=== PATIENT | female | born 1985 | race Caucasian/White ===

== ENCOUNTER 2017-06-06 16:31 | Outpatient (CLI) | payer OTHER ==
[~2017-06-06] VITALS: Ht 162.6 cm; Wt 103.8 kg
--- NOTE | 2017-06-06 17:38 | RADRPT ---
PROCEDURE: US OB biophysical profile. CLINICAL INDICATION: evaluation TECHNIQUE: Multiple sonographic images of the pelvis were obtained. The images were reviewed on a PACS workstation. COMPARISON: No prior studies are available for comparison. FINDINGS: There is a single viable intrauterine gestation. Cardiac activity is present with 166 beats per min sol. There is a vertex presentation. The placenta is posterior. There is no evidence of placental abruption. There is a normal amount of amniotic fluid with an ANITHA = 12.6 cm. Biophysical profile: movement 2/2 tone 2/2. breathing 2/2 ANITHA 2/2 Total 06/28 RPTAT: AA . IMPRESSION: Normal biophysical profile. Mildly elevated heart rate of 166 beats per minute. Normal ANITHA. Physician Julio Date Time Electronically viewed and signed by Physician Julio on 06/06/2017 17:37 /
[2017-06-06 17:39] VITALS: Ht 162.6 cm; Wt 103.8 kg
[2017-06-06] MEDS ORDERED: PRENAT PO (17:39)
[2017-06-06] MEDS ORDERED: FER325 PO (17:39)
[2017-06-06 17:40] VITALS: BP 99/63; PULSE 80; RESP 18
[2017-06-06 17:58] LABS: ADD SCAN DIFF NO
[2017-06-06 18:01] LABS: BASOPHILS % 0.1 % (0.0-2.0); EOSINOPHILS # 0.2 10^3/ul (0.0-0.5); HEMATOCRIT 33.4 % (37.0-47.0); HEMOGLOBIN 10.9 g/dl (12.0-16.0); LYMPHOCYTES # 1.7 10^3/ul (0.8-2.9); LYMPHOCYTES % 18.5 % (15.0-51.0); MEAN CORPUSCULAR HEMOGLOBIN 30.8 pg (29.0-33.0); MEAN CORPUSCULAR HGB CONC 32.6 g/dl (32.0-37.0); MEAN CORPUSCULAR VOLUME 94.4 fl (82.0-101.0); MEAN PLATELET VOLUME 11.5 fl (7.4-10.4); MONOCYTE # 0.8 10^3/ul (0.3-0.9); MONOCYTES % 9.1 % (0.0-11.0); NEUTROPHIL # 6.2 10^3/ul (1.6-7.5); NEUTROPHILS % 68.8 % (39.0-77.0); PLATELET COUNT 170 10^3/UL (140-415); RED BLOOD COUNT 3.54 10^6/ul (4.20-5.40); RED CELL DISTRIBUTION WIDTH 14.1 % (11.5-14.5); WHITE BLOOD COUNT 8.9 10^3/ul (4.8-10.8)
[2017-06-06 18:06] LABS: ADD UMIC YES; UR ASCORBIC ACID 20 mg/dL (NEGATIVE); UR BILIRUBIN (Dip) NEGATIVE (NEGATIVE); UR BLOOD (Dip) NEGATIVE (NEGATIVE); UR CLARITY SLIGHTLY CLOUDY (CLEAR); UR COLOR YELLOW (YELLOW); UR GLUCOSE (Dip) NEGATIVE (NEGATIVE); UR KETONES (Dip) NEGATIVE (NEGATIVE); UR LEUKOCYTE ESTERASE (Dip) 3+ Leu/ul (NEGATIVE); UR MUCUS FEW /HPF (NONE SEEN); UR NITRITE (Dip) NEGATIVE (NEGATIVE); UR RBC 3 /HPF (0-5); UR SPECIFIC GRAVITY (Dip) 1.027 (1.003-1.030); UR SQUAMOUS EPITHELIAL CELL FEW /HPF (FEW); UR TOTAL PROTEIN (Dip) NEGATIVE (NEGATIVE); UR UROBILINOGEN (Dip) NEGATIVE (NEGATIVE)
[2017-06-06 18:21] LABS: INR 1.03; PROTIME 13.5 Sec (12.2-14.2); PT RATIO 1.1
[2017-06-06 18:22] LABS: PARTIAL THROMBOPLASTIN TIME 30.2 Sec (25.0-35.0)
[2017-06-06 18:23] LABS: ALBUMIN 3.4 g/dl (3.3-4.9); ALBUMIN/GLOBULIN RATIO 1.09; BILIRUBIN,INDIRECT 0.1 mg/dl (0-1.1); BILIRUBIN,TOTAL 0.1 mg/dl (0.2-1.3); CALCIUM 9.1 mg/dl (8.4-10.2); CREATININE 0.51 mg/dl (0.44-1.00); POTASSIUM 3.8 mmol/L (3.5-5.1); TOTAL PROTEIN 6.5 g/dl (6.1-8.1); URIC ACID 3.6 mg/dl (3.1-7.9)
--- NOTE | 2017-06-06 18:51 | TRIAGE ---
OB Triage Datetime Report Generated by CPN: 06/06/2017 18:50 Datetime: 06/06/2017 18:30 Stage of : OB Triage Maternal Assessment Level of Consciousness: Fully Conscious Labor Evaluation Frequency: IRREGULAR Monitor Mode: External Duration (sec)2399: 60-100 Quality: Mild Resting Tone [place]: Relaxed Heart Rate FHR Baseline Rate: 135 Monitor Mode: External US Variability: Moderate 6-25 bpm Accelerations: 15X15 Decelerations: None Pain Assessment Pain Scale: 0 Pain Goal: 3 Vaginal Exam Membrane Status: Intact Vaginal Bleeding: None Datetime: 06/06/2017 17:37 Assessment Type: Triage Maternal Assessment Level of Consciousness: Fully Conscious DTR's/Clonus: DTRs 2+; No Clonus Headache: Denies Blurred Vision: No Respiratory Effort: Unlabored; Regular Rhythm; Equal Expansion Breath Sounds, Left: Clear and Equal Breath Sounds, Right: Clear and Equal Nausea/Vomiting: Denies RUQ Epigastric Pain: Denies Lower Extremities Edema: Bilateral Lower Extremities Degree: 1+ Upper Extremities Edema: None Degree: None Facial Edema: None Fall Risk Assessment History of Falling: (0) No Secondary Diagnosis: (0) No Ambulatory Aid: (0) Bedrest/Nurse Assist IV Therapy: (0) No Gait: (0) Normal/Bedrest/Immobile Mental Status: (0) Oriented to Own Ability Fall Score: 0 Fall Risk Score Definition: No Risk: No action required Datetime: 06/06/2017 17:32 Time of Arrival: 06/06/2017 16:35 EGA: 29.3 Arrived By: Ambulatory Arrived From: Office Chief Complaint: pt sent from OFFICE FOR EVAL. OF HBP Movement: Present Contractions: Denies/Absent Rupture of Membranes: Denies Vaginal Bleeding: None Vaginal Discharge: Denies Recent Sexual Intercouse: Denies Abdominal Trauma: Not Applicable Patient Complaints: None Time Provider Notified: 06/06/2017 18:38 Provider Notified: ITZ Initial Plan: PIH PANEL,NST, U/S BPP Datetime: 06/06/2017 17:31 Monitor Mode: External Monitor Mode: External US
--- NOTE | 2017-06-06 18:52 | QN ---
Documentation Comment iup 29 weeks vss exam wnl labs wnl a/p iup 29 weeks PIH ruled out dc home ATUL MORRELL MD Jun 06, 2017 18:51
== END 2017-06-06 18:52 | disposition home or self-care (01) ==
LOC: OBT 16:31 → L-D 16:31 → OBT 18:52
PROVIDERS: ATTEND Obstetrics & Gynecology
DX: O16.3 Unspecified maternal hypertension, third trimester (principal); Z3A.30 30 weeks gestation of pregnancy
CPT/HCPCS: 76818; 80053; 81001; 84560; 85025; 85384; 85610; 85730; Z7500; G0463

== ENCOUNTER 2017-08-12 05:35 | Inpatient (IN) | payer OTHER ==
[~2017-08-12] VITALS: Ht 154.9 cm; Wt 111.0 kg
[2017-08-12] VITALS (8 sets, daily range): BP systolic 81–120; BP diastolic 53–73; PULSE 79–129; RESP 16–20; Ht 154.9 cm; Wt 111.0 kg
[~2017-08-12 05:35] MED LIST: FER325 PO; PRENAT PO
[2017-08-12] MEDS ORDERED: CARBOPROST 250 MCG INJ IM PRN ×2 (06:00→13:00)
[2017-08-12] MEDS ORDERED: METHYLERGONOVINE 0.2 MG INJ IM PRN ×2 (06:00→13:00)
[2017-08-12] MEDS ORDERED: MISOPROSTOL 200 MCG TAB PR PRN ×2 (06:00→13:00)
[2017-08-12] MEDS ORDERED: OXYTOCIN 30 UNITS/LR 500 ML IV PRN ×2 (06:00→13:00)
[2017-08-12 06:25] LABS: BASOPHILS % 0.2 % (0.0-2.0); EOSINOPHILS # 0.1 10^3/ul (0.0-0.5); EOSINOPHILS % 1.5 % (0.0-7.0); HEMATOCRIT 36.7 % (37.0-47.0); HEMOGLOBIN 12.5 g/dl (12.0-16.0); LYMPHOCYTES # 1.7 10^3/ul (0.8-2.9); LYMPHOCYTES % 20.2 % (15.0-51.0); MEAN CORPUSCULAR HEMOGLOBIN 32.3 pg (29.0-33.0); MEAN CORPUSCULAR HGB CONC 34.1 g/dl (32.0-37.0); MEAN CORPUSCULAR VOLUME 94.8 fl (82.0-101.0); MEAN PLATELET VOLUME 12.6 fl (7.4-10.4); MONOCYTE # 0.7 10^3/ul (0.3-0.9); MONOCYTES % 8.5 % (0.0-11.0); NEUTROPHIL # 5.9 10^3/ul (1.6-7.5); NEUTROPHILS % 68.6 % (39.0-77.0); PLATELET COUNT 166 10^3/UL (140-415); RED BLOOD COUNT 3.87 10^6/ul (4.20-5.40); RED CELL DISTRIBUTION WIDTH 13.8 % (11.5-14.5); WHITE BLOOD COUNT 8.6 10^3/ul (4.8-10.8)
[2017-08-12 06:48] LABS: INR 0.95; PROTIME 12.7 Sec (12.2-14.2)
[2017-08-12 06:49] LABS: PARTIAL THROMBOPLASTIN TIME 32.2 Sec (25.0-35.0)
[2017-08-12] MEDS ORDERED: CEFAZOLIN 2 GM/50 ML (PMX) 50 ML IV SCH (07:00)
[2017-08-12] MEDS: LACTATED RINGER'S 1,000 ML IV SCH ×2 (07:40→07:44)
[2017-08-12] MEDS ORDERED: morphine SULFATE/PF (10 MG/10 ML) INJ ONE (07:59)
[2017-08-12] MEDS ORDERED: OXYTOCIN 30 UNITS/LR 500 ML IV ONE (07:59)
[2017-08-12] MEDS ORDERED: EPHEDrine SULFATE 50 MG/5 ML SYG ONE (07:59)
[2017-08-12] MEDS ORDERED: METOCLOPRAMIDE 10 MG INJ ONE (07:59)
[2017-08-12] MEDS ORDERED: ONDANSETRON 4 MG INJ ONE (07:59)
[2017-08-12] MEDS ORDERED: OXYTOCIN 10 UNIT INJ ONE (08:00)
[2017-08-12 08:17] LABS: ALANINE AMINOTRANSFERASE 37 IU/L (13-69); ALBUMIN 3.3 g/dl (3.3-4.9); ALBUMIN/GLOBULIN RATIO 1.32; ALKALINE PHOSPHATASE 130 IU/L (42-121); ANION GAP 11 (8-16); ASPARTATE AMINO TRANSFERASE 28 IU/L (15-46); BILIRUBIN,INDIRECT 0.3 mg/dl (0-1.1); BILIRUBIN,TOTAL 0.3 mg/dl (0.2-1.3); BLOOD UREA NITROGEN 10 mg/dl (7-20); CALCIUM 9.4 mg/dl (8.4-10.2); CARBON DIOXIDE 22 mmol/L (21-31); CHLORIDE 107 mmol/L (97-110); CREATININE 0.44 mg/dl (0.44-1.00); GLUCOSE 73 mg/dl (70-220); SODIUM 136 mmol/L (135-144); TOTAL PROTEIN 5.8 g/dl (6.1-8.1)
--- NOTE | 2017-08-12 10:29 | SIPON ---
Date/Time of Note Date/Time of Note DATE: 08/12/17 TIME: 10:25 Operative Report Preoperative Diagnosis IUP 39w with previous c/s Postoperative Diagnosis same delivered normal infant Operation/Procedure Performed repeat low transverse section and bilateral fimbriectomy bilatera; ovarian cystectomy Surgeon see signature line digital sales assistant reiche Anesthesia: spinal Estimated blood loss: other (600 cc) Transfusion Required none Specimen ovarian cyst bilateral \x2 nodules from rt ovaries both portion of follopian tube Grafts/Implants none Complications none ISMAEL MOBLEY MD Aug 12, 2017 10:29
[2017-08-12] MEDS ORDERED: OXYTOCIN 30 UNITS/LR 500 ML IV SCH (10:30)
[2017-08-12] MEDS ORDERED: ONDANSETRON 4 MG INJ IV PRN ×2 (11:00→13:00)
[2017-08-12] MEDS ORDERED: NALOXONE (0.4 MG/ML) INJ IV PRN (11:00)
[2017-08-12] MEDS ORDERED: EPHEDrine SULFATE 50 MG/5 ML SYG IV PRN (11:00)
[2017-08-12] MEDS ORDERED: morphine SULFATE/PF (10 MG/10 ML) INJ SPINAL ONE (11:00)
[2017-08-12] MEDS ORDERED: morphine 2 MG INJ IV PRN (11:00)
[2017-08-12] MEDS ORDERED: morphine 4 MG/ML VIAL IV PRN (11:00)
[2017-08-12] MEDS ORDERED: DIPHENHYDRAMINE 50 MG INJ IV PRN ×2 (11:00→13:00)
[2017-08-12] MEDS: KETOROLAC 30 MG INJ IV PRN ×2 (12:17→18:18)
[2017-08-12] MEDS ORDERED: LANOLIN 7 GM TUBE TOP PRN (13:00)
[2017-08-12] MEDS ORDERED: ZOLPIDEM 5 MG TAB PO PRN (13:00)
[2017-08-12] MEDS: OXYTOCIN 30 UNITS/LR 500 ML IV SCH ×3 (14:30→23:33)
[2017-08-12] MEDS: SENNA/DOCUSATE NA (8.6MG/50MG) TAB PO SCH (21:00)
[2017-08-12] MEDS ORDERED: SOD CHLORIDE 0.9% 500 ML IV ONE (21:30)
[2017-08-12] MEDS ORDERED: SODIUM CHLORIDE 0.45% 500 ML BAG IV* ONE ×2 (21:30→22:00)
[2017-08-13] VITALS (42 sets, daily range): BP systolic 90–143; BP diastolic 53–78; PULSE 99–125; RESP 14–27
[2017-08-13] MEDS ORDERED: SODIUM CHLORIDE 0.45% 500 ML BAG IV* SCH (00:30)
[2017-08-13] MEDS ORDERED: SOD CHLORIDE 0.45% 1,000 ML IV SCH (01:00)
[2017-08-13] MEDS: OXYTOCIN 30 UNITS/LR 500 ML IV SCH ×4 (02:00→14:00)
[2017-08-13] MEDS: SOD CHLORIDE 0.45% 1,000 ML IV SCH ×3 (02:16→15:50)
[2017-08-13] MEDS: KETOROLAC 30 MG INJ IV PRN ×2 (06:20)
[2017-08-13 06:33] LABS: BASOPHILS % 0.1 % (0.0-2.0); EOSINOPHILS % 0.1 % (0.0-7.0); HEMATOCRIT 22.1 % (37.0-47.0); LYMPHOCYTES # 1.7 10^3/ul (0.8-2.9); LYMPHOCYTES % 12.2 % (15.0-51.0); MEAN CORPUSCULAR HEMOGLOBIN 31.7 pg (29.0-33.0); MEAN CORPUSCULAR HGB CONC 32.6 g/dl (32.0-37.0); MEAN CORPUSCULAR VOLUME 97.4 fl (82.0-101.0); MEAN PLATELET VOLUME 12.4 fl (7.4-10.4); MONOCYTE # 1.3 10^3/ul (0.3-0.9); MONOCYTES % 8.8 % (0.0-11.0); NEUTROPHILS % 77.1 % (39.0-77.0); PLATELET COUNT 139 10^3/UL (140-415); RED BLOOD COUNT 2.27 10^6/ul (4.20-5.40); RED CELL DISTRIBUTION WIDTH 14.7 % (11.5-14.5); WHITE BLOOD COUNT 14.3 10^3/ul (4.8-10.8)
[2017-08-13 07:07] LABS: HEMOGLOBIN 7.2 g/dl (12.0-16.0)
[2017-08-13] MEDS: SENNA/DOCUSATE NA (8.6MG/50MG) TAB PO SCH (08:55)
[2017-08-13] MEDS ORDERED: FERROUS SULFATE (EC) 325 MG TAB PO SCH (09:00)
[2017-08-13] MEDS ORDERED: PRENATAL VITAMIN PO SCH (09:00)
[2017-08-13] MEDS ORDERED: FERROUS GLUCONATE (EC) 325 MG TAB PO SCH (10:00)
[2017-08-13] MEDS ORDERED: IBUPROFEN 600 MG TAB PO SCH (12:00)
[2017-08-13] MEDS ORDERED: IOHEXOL 100 ML ONE (12:22)
[2017-08-13] MEDS ORDERED: SOD CHLORIDE 0.9% 100 ML ONE (12:22)
[2017-08-13 12:46] LABS: ABNORMAL IP MESSAGE 1; EOSINOPHILS % 0.1 % (0.0-7.0); HEMATOCRIT 20.2 % (37.0-47.0); LYMPHOCYTES # 1.4 10^3/ul (0.8-2.9); LYMPHOCYTES % 10.3 % (15.0-51.0); MEAN CORPUSCULAR HEMOGLOBIN 31.6 pg (29.0-33.0); MEAN CORPUSCULAR HGB CONC 32.2 g/dl (32.0-37.0); MEAN CORPUSCULAR VOLUME 98.1 fl (82.0-101.0); MEAN PLATELET VOLUME 12.5 fl (7.4-10.4); MONOCYTE # 1.2 10^3/ul (0.3-0.9); MONOCYTES % 8.7 % (0.0-11.0); NEUTROPHIL # 10.7 10^3/ul (1.6-7.5); NEUTROPHILS % 79.3 % (39.0-77.0); PLATELET COUNT 122 10^3/UL (140-415); RED BLOOD COUNT 2.06 10^6/ul (4.20-5.40); RED CELL DISTRIBUTION WIDTH 14.8 % (11.5-14.5); WHITE BLOOD COUNT 13.5 10^3/ul (4.8-10.8)
[2017-08-13 12:49] LABS: HEMOGLOBIN 6.5 g/dl (12.0-16.0); POSITIVE DIFF @See below
[2017-08-13] MEDS ORDERED: OXYCODONE/ACETAMINOPHEN (5/325) TAB PO PRN ×2 (13:00)
[2017-08-13] MEDS ORDERED: ENOXAPARIN 60 MG/0.6 ML SYG SC STA (13:01)
--- NOTE | 2017-08-13 13:09 | CONS ---
Date/Time of Note Date/Time of Note DATE: 08/13/17 TIME: 13:07 Consultation Date/Type/Reason Admit Date/Time Aug 12, 2017 at 05:35 Hx of Present Illness HOUSEMAN called for acute SOB and tachycardia Patient POD 1 for Doing well until earlier this AM when developed acute SOB, felt like she couldn' t breath and neck swelling shut 98% on RA, RR 30, BP 120s/70s, HR 120s in sinus rhythm EKG with sinus tach, LA abdnormality CT-A is positive for segemental and subsegmental PE per radiologist report I discussed the result with Dr Bolivar attending Bottle Blower Ok to start a heparin bolus/drip STAT Transfer patient to telemetry vs ICU STAT Social History Smoking Status: Never smoker Exam/Review of Systems Vital Signs Vitals Vital Signs Date Time Temp Pulse Resp B/P Pulse Ox O2 Delivery O2 Flow Rate FiO2 08/13/17 08:00 98.5 103 17 99/53 Room Air Intake and Output 08/12/17 08/12/17 08/13/17 15:00 23:00 07:00 Intake Total 1435 ml 875 ml 1835 ml Output Total 1150 ml 1410 ml 170 ml Balance 285 ml -535 ml 1665 ml Results Result Diagram: 08/13/17 1204 08/12/17 0600 Results 24 hrs Laboratory Tests Test 08/13/17 05:41 08/13/17 12:04 White Blood Count 14.3 #H 13.5 H Red Blood Count 2.27 #L 2.06 L Hemoglobin 7.2 #L 6.5 *L Hematocrit 22.1 #L 20.2 L Mean Corpuscular Volume 97.4 98.1 Mean Corpuscular Hemoglobin 31.7 31.6 Mean Corpuscular Hemoglobin Concent 32.6 32.2 Red Cell Distribution Width 14.7 H 14.8 H Platelet Count 139 L 122 L Mean Platelet Volume 12.4 H 12.5 H Neutrophils % 77.1 H 79.3 H Lymphocytes % 12.2 L 10.3 L Monocytes % 8.8 8.7 Eosinophils % 0.1 0.1 Basophils % 0.1 0.0 Nucleated Red Blood Cells % 0.0 0.0 Neutrophils # 11.0 H 10.7 H Lymphocytes # 1.7 1.4 Monocytes # 1.3 H 1.2 H Eosinophils # 0.0 0.0 Basophils # 0.0 0.0 Nucleated Red Blood Cells # 0.0 0.0 Medications Medications Current Medications Influenza Virus Vaccine (Fluzone) 0.5 ml ONCE ONCE IM* ; Start 08/15/17 at 09:00 ; Stop 08/15/17 at 09:01 Prenat Multivit/ Contact Lens Technician/Iron/Folic Ac () 1 tab DAILY PO Last administered on 08/13/17 08:54; Admin Dose 1 TAB; Start 08/13/17 at 09:00 Oxycodone/ Acetaminophen (Percocet (5/ 325)) 1 tab Q4H PRN PO PAIN LEVEL 4-6; Start 08/13/17 at 13:00 Oxycodone/ Acetaminophen (Percocet (5/ 325)) 2 tab Q4H PRN PO PAIN LEVEL 7-10; Start 08/13/17 at 13:00 Ibuprofen (Motrin) 600 mg Q6 PO Last administered on 08/13/17 11:49; Admin Dose 600 MG; Start 08/13/17 at 12:00 Simethicone (Mylicon) 160 mg Q8H PRN PO DISTENSION/GAS/BLOATING Last administered on 08/13/17 10:23; Admin Dose 160 MG; Start 08/12/17 at 13:00 Senna/Docusate Sodium (Senokot-S) 1 tab BID PO Last administered on 08/13/17 08:55; Admin Dose 1 TAB; Start 08/12/17 at 21:00 Diphtheria/ Tetanus/Acell Pertussis 0.5 ml 0.5 ml ONCE ONCE IM* ; Start at 09:00; Stop 08/15/17 at 09:01 Oxytocin/Lactated Ringer's 500 ml @ 0 mls/hr ONCE PRN IV For Hemorrhage Management; Start 08/12/17 at 13:00 Methylergonovine Maleate (Methergine) 0.2 mg ONCE PRN IM VAGINAL BLEEDING; Start 08/12/17 at 13:00 Carboprost Tromethamine (Hemabate) 250 mcg ONCE PRN IM VAGINAL BLEEDING; Start 08/12/17 at 13:00 Misoprostol (Cytotec) 1,000 mcg ONCE PRN [place] VAGINAL BLEEDING; Start 08/12/17 at 13:00 Diphenhydramine HCl (Benadryl) 25 mg Q6H PRN IV PRURITUS; Start 08/12/17 at 13: 00 Ondansetron HCl (Zofran Inj) 4 mg Q6H PRN IV NAUSEA AND/OR VOMITING; Start at 13:00 Zolpidem Tartrate 10 mg 10 mg QHS PRN PO INSOMNIA; Start 08/12/17 at 13:00 Oxytocin/Lactated Ringer's 500 ml @ 125 mls/hr Q4H IV Last administered on 23:33; Admin Dose 125 MLS/HR; Start 08/12/17 at 14:00 Sodium Chloride (1/2 NS) 1,000 ml @ 150 mls/hr Q6H40M IV Last administered on 08/13/17 10:03; Admin Dose 150 MLS/HR; Start 08/13/17 at 02:30 Ferrous Gluconate (Fergon) 325 mg BID PO ; Start 08/13/17 at 21:00 Miscellaneous Information (* Miscellaneous Pharmacy Order) DC previous hepa... ONCE ONCE XX ; Start 08/13/17 at 13:30; Stop 08/13/17 at 13:31; Status UNV Heparin Sodium (Porcine) (Heparin (1000 Units/ml)) 8,900 unit ONCE ONCE IV ; Start 08/13/17 at 13:30; Stop 08/13/17 at 13:31; Status UNV JUDI WINTERS MD Aug 13, 2017 13:09
[2017-08-13] MEDS ORDERED: SOD CHLORIDE 0.9% 250 ML IV* ONE (13:12)
--- NOTE | 2017-08-13 13:16 | RADRPT ---
PROCEDURE: CT angiogram of the chest with contrast. CLINICAL INDICATION: Possible pulmonary embolism TECHNIQUE: CT scan of the chest with contrast was performed on a multidetector high-resolution CT scan. The patient was scanned following the uncomplicated intravenous administration of 125 ml Omni paque-300. The. Coronal and sagittal reformatted images were obtained from the axial source images. Standard CT angiogram of the chest with contrast protocols were performed. 2-D and 3-D reformats wer e performed. The total exam CTDI equals 56.34 mGy and the total exam DLP equals 734.68 mGy-cm. One or more of the following dose reduction techniques were used: - Automated exposure control. - Adjustment of the mA and/or kV according to patient size. Use of iterative reconstruction technique. COMPARISON: CT pulmonary angiogram 05/26/2017 FINDINGS: The pulmonary outflow tract left main pulmonary artery are well enhanced without filling defects. In the distal right main pulmonary artery and extending to involve the right upper, middle and lower l obe liver pulmonary arteries consistent with pulmonary embolism. Additional filling defects involve the primary intersegmental pulmonary arteries of the right upper , middle and lower lobe and seconda ry branches of the right lower lobe pulmonary arteries. The left lobar and primary intersegmental pu lmonary arteries are well enhanced without filling defects. Note that there does not appear to be ri ght heart strain or right heart failure. The heart is within normal in size without pericardial effusion. No evidence of pleural effusions an d pneumothoraces. No evidence of mediastinal hilar or axillary lymphadenopathy. There is mild patchy inhomogeneous ground-glass opacities involving both lower lobes slightly more so on the right and t o a smaller extent the right middle lobe which may all be due to atelectasis. Pneumonitis cannot be excluded. There is no evidence of pulmonary nodules. There is mild to moderate left upper quadrant abdominal ascites. Note that the anterior aspect of th e mid to superior abdominal wall is cut off the image. Status post cholecystectomy without biliary d uctal dilation. Images of the upper abdomen are otherwise unremarkable. The osseous structures are u nremarkable. IMPRESSION: 1. Pulmonary emboli involving the distal right main coronary artery, right upper middle and lower l obe pulmonary arteries and intersegmental branches as described above. No evidence of right heart st rain or right heart failure. 2. Mild patchy inhomogeneous ground-glass opacities involving both lower lobes more so on the right and to a lesser extent right middle lobe which may all be due to atelectasis the pneumonitis should be considered. 3. No evidence of pleural effusions or pneumothorax. 4. Mild to moderate left upper quadrant abdominal ascites. Recommend clinical correlation. Addendum: Dr. Yang was telephoned this results on 08/13/2017 at 1300 hours. RPTAT:AAJJ Physician Domo Date Time Electronically viewed and signed by Savannah Holloway Physician on 08/13/2017 13:15 BM/
[2017-08-13] MEDS ORDERED: HEPARIN 1000 UNITS/ML 10 ML INJ IV PRN ×2 (13:30)
[2017-08-13] MEDS ORDERED: HEPARIN 1000 UNITS/ML 10 ML INJ IV ONE (13:30)
--- NOTE | 2017-08-13 13:50 | CONS ---
Date/Time of Note Date/Time of Note DATE: 08/13/17 TIME: 13:46 Assessment/Plan Assessment/Plan Additional Assessment/Plan CT of the chest was reviewed which is showing pulmonary emboli involving the right main pulmonary artery as well as right middle and upper lobes. No other acute infiltrates identified. Assessment and recommendations; 1. Patient admitted for elective then developed shortness of breath due to pulmonary embolism. Patient however is hemodynamically stable at this point. Also exhibiting adequate oxygenation status. 2. Severe anemia. Continue IV heparin via protocol. Transfuse 2 units packed RBC. Will obtain 2D echocardiogram for evaluation of right ventricular strain. Lower extremity ultrasound to rule out DVT. Consultation Date/Type/Reason Admit Date/Time Aug 12, 2017 at 05:35 Date of Consultation: Aug 13, 2017 Type of Consultation: Pulmonary/critical care Reason for Consultation Consultation requested for evaluation of pulmonary embolism. Next History of presenting illness; patient is a 32-year-old lady who was admitted for elective which was performed uneventfully yesterday. However short while ago became acutely short of breath and a stat CT of the chest was done which is showing right-sided pulmonary embolism involving the right upper lower and middle lobe branches. Patient has been transferred to ICU and started on IV heparin via protocol. Patient feeling better now with decreased shortness of breath. Denies any syncope, chest pain and hemoptysis. Past medical history; 1. This is the patient's third . No history of medical illnesses. Medications; reviewed. Allergies; none. Social history; never smoked no history of alcohol or drug abuse. Occupation history; noncontributory. Family history; patient is . No history of any illnesses in the family. Review systems; denies any headache, seizures. Any chest pain. Shortness of breath is improving. Denies any cough or hemoptysis. Any nausea vomiting. Complains of mild abdominal discomfort because of yesterday's surgery. Denies any edema. Complains of mild orthopnea. Has gained weight during . General exam; young woman , awake alert , currently in no distress Social History Smoking Status: Never smoker Exam/Review of Systems Vital Signs Vitals Vital Signs Date Time Temp Pulse Resp B/P Pulse Ox O2 Delivery O2 Flow Rate FiO2 08/13/17 11:45 98.0 109 18 105/55 98 Room Air Intake and Output 08/12/17 08/12/17 08/13/17 15:00 23:00 07:00 Intake Total 1435 ml 875 ml 1835 ml Output Total 1150 ml 1410 ml 170 ml Balance 285 ml -535 ml 1665 ml Exam HEENT exam;; supple neck, no JVD. No lymphadenopathy. Midline trachea. No thyromegaly. Pharynx is clear. Patient has good dentition. Pupils are midsize and reactive to light. Chest exam; clear to auscultation. S1-S2 audible, no murmurs. Regular rhythm. Tachycardic. Abdomen exam; soft, protuberant. Dressing applied. Midline. Mildly tender. Audible. Extremity exam; no peripheral edema. Pulses 1+ bilaterally. No clubbing. SENIOR POLICY ANALYST exam; no focal deficit. Results Result Diagram: 08/13/17 1204 08/12/17 0600 Results 24 hrs Laboratory Tests Test 08/13/17 05:41 08/13/17 12:04 White Blood Count 14.3 #H 13.5 H Red Blood Count 2.27 #L 2.06 L Hemoglobin 7.2 #L 6.5 *L Hematocrit 22.1 #L 20.2 L Mean Corpuscular Volume 97.4 98.1 Mean Corpuscular Hemoglobin 31.7 31.6 Mean Corpuscular Hemoglobin Concent 32.6 32.2 Red Cell Distribution Width 14.7 H 14.8 H Platelet Count 139 L 122 L Mean Platelet Volume 12.4 H 12.5 H Neutrophils % 77.1 H 79.3 H Lymphocytes % 12.2 L 10.3 L Monocytes % 8.8 8.7 Eosinophils % 0.1 0.1 Basophils % 0.1 0.0 Nucleated Red Blood Cells % 0.0 0.0 Neutrophils # 11.0 H 10.7 H Lymphocytes # 1.7 1.4 Monocytes # 1.3 H 1.2 H Eosinophils # 0.0 0.0 Basophils # 0.0 0.0 Nucleated Red Blood Cells # 0.0 0.0 Medications Medications Current Medications Influenza Virus Vaccine (Fluzone) 0.5 ml ONCE ONCE IM* ; Start 08/15/17 at 09:00 ; Stop 08/15/17 at 09:01 Prenat Multivit/ Gas Plant Repairer/Iron/Folic Ac () 1 tab DAILY PO Last administered on 08/13/17t 08:54; Admin Dose 1 TAB; Start 08/13/17 at 09:00 Oxycodone/ Acetaminophen (Percocet (5/ 325)) 1 tab Q4H PRN PO PAIN LEVEL 4-6; Start 08/13/17 at 13:00 Oxycodone/ Acetaminophen (Percocet (5/ 325)) 2 tab Q4H PRN PO PAIN LEVEL 7-10; Start 08/13/17 at 13:00 Simethicone (Mylicon) 160 mg Q8H PRN PO DISTENSION/GAS/BLOATING Last administered on 08/13/17 10:23; Admin Dose 160 MG; Start 08/12/17 at 13:00 Senna/Docusate Sodium (Senokot-S) 1 tab BID PO Last administered on 08/13/17 08:55; Admin Dose 1 TAB; Start 08/12/17 at 21:00 Diphtheria/ Tetanus/Acell Pertussis 0.5 ml 0.5 ml ONCE ONCE IM* ; Start at 09:00; Stop 08/15/17 at 09:01 Oxytocin/Lactated Ringer's 500 ml @ 0 mls/hr ONCE PRN IV For Hemorrhage Management; Start 08/12/17 at 13:00 Methylergonovine Maleate (Methergine) 0.2 mg ONCE PRN IM VAGINAL BLEEDING; Start 08/12/17 at 13:00 Carboprost Tromethamine (Hemabate) 250 mcg ONCE PRN IM VAGINAL BLEEDING; Start 08/12/17 at 13:00 Misoprostol (Cytotec) 1,000 mcg ONCE PRN [place] VAGINAL BLEEDING; Start 08/12/17 at 13:00 Diphenhydramine HCl (Benadryl) 25 mg Q6H PRN IV PRURITUS; Start 08/12/17 at 13: 00 Ondansetron HCl (Zofran Inj) 4 mg Q6H PRN IV NAUSEA AND/OR VOMITING; Start at 13:00 Zolpidem Tartrate 10 mg 10 mg QHS PRN PO INSOMNIA; Start 08/12/17 at 13:00 Oxytocin/Lactated Ringer's 500 ml @ 125 mls/hr Q4H IV Last administered on 23:33; Admin Dose 125 MLS/HR; Start 08/12/17 at 14:00 Sodium Chloride (1/2 NS) 1,000 ml @ 150 mls/hr Q6H40M IV Last administered on 08/13/17t 10:03; Admin Dose 150 MLS/HR; Start 08/13/17 at 02:30 Ferrous Gluconate (Fergon) 325 mg BID PO ; Start 08/13/17 at 21:00 OLEGARIO MANCERA Aug 13, 2017 13:50
[2017-08-13 14:19] LABS: ABNORMAL IP MESSAGE 1; BASOPHILS % 0.1 % (0.0-2.0); EOSINOPHILS % 0.1 % (0.0-7.0); HEMATOCRIT 20.2 % (37.0-47.0); LYMPHOCYTES % 7.3 % (15.0-51.0); MEAN CORPUSCULAR HEMOGLOBIN 32.9 pg (29.0-33.0); MEAN CORPUSCULAR HGB CONC 34.2 g/dl (32.0-37.0); MEAN CORPUSCULAR VOLUME 96.2 fl (82.0-101.0); MEAN PLATELET VOLUME 11.6 fl (7.4-10.4); MONOCYTE # 1.1 10^3/ul (0.3-0.9); MONOCYTES % 8.1 % (0.0-11.0); NEUTROPHIL # 11.6 10^3/ul (1.6-7.5); NEUTROPHILS % 82.8 % (39.0-77.0); PLATELET COUNT 138 10^3/UL (140-415); RED CELL DISTRIBUTION WIDTH 14.6 % (11.5-14.5)
[2017-08-13 14:30] LABS: HEMOGLOBIN 6.9 g/dl (12.0-16.0); POSITIVE DIFF @See below
[2017-08-13 14:32] LABS: INR 1.09; PROTIME 14.1 Sec (12.2-14.2); PT RATIO 1.1
[2017-08-13 14:33] LABS: PARTIAL THROMBOPLASTIN TIME 32.6 Sec (25.0-35.0)
--- NOTE | 2017-08-13 15:18 | HP ---
Date/Time of Note Date/Time of Note DATE: 08/13/17 TIME: 13:51 OB - History Hx of Present Free Text/Dictation 32 y.o A1(sab) who had x2 section here for repeat c/s and voluntary tubal sterilization at 39weeks. Her course was unevenful prepare for repeat c/s and BTL.after written consent was obtained. Chief Complaint: for elective RC/S and BTL Estimated Due Date: Aug 19, 2017 : 4 Para: 2 Spontaneous : 1 Therapeutic : 0 Care: Limited Care Ultrasounds: Normal mid trimester US Obstetrical Complications: None Medical Complications: None Past Family/Social History * Past Medical, Surgical, Family and Obstetric Histories reviewed from chart. Blood Type: O+ Rubella: immune RPR/VDRL: Negative GBS Status: Unknown HBsAG: Negative OB Admission Exam Vital Signs Vital Signs Vital Signs Date Time Temp Pulse Resp B/P Pulse Ox O2 Delivery O2 Flow Rate FiO2 08/13/17 11:45 98.0 109 18 105/55 98 Room Air Physical Exam HEENT: WNL Heart: Rhythm Normal Lungs: Clear, Equal Abdomen: WNL Extremities: Edema Reflexes: Normal Cervical Dilatation: other Station: Other Membranes: Intact Amniotic Fluid: Unevaluable Heart Rate: 140's Accelerations: Accelerations Present Decelerations: Early Decelerations Varibility: Moderate Contractions on Admission: >10 Minutes Apart Intensity: Mild Last 72 hours Lab Results CBC & BMP 08/12/17 06:00 08/13/17 05:41 08/13/17 12:04 Liver Function Test 08/12/17 06:00 Alanine Aminotransferase (ALT/SGPT) 37 Albumin 3.3 Alkaline Phosphatase 130 H Aspartate Amino Transf (AST/SGOT) 28 Direct Bilirubin 0.00 Total Protein 5.8 L OB Assessment/Plan Reason for admission: section Other Assessment: IUP 39weeks X2 section multiparity Plan: Section Other plan: bilateral tubal sterilization ISMAEL MOBLEY MD Aug 13, 2017 15:13
--- NOTE | 2017-08-13 15:56 | OPR ---
Operative Report Planned Procedure Procedure date Aug 12, 2017 Procedure(s) repeat low transverse section and bilateral salphingectomy and bilateral ovarean cystectomy and excision of x2 nodules from left ovarian capsule and lysis of adhesion Performed by see signature line Assisting provider: LONA AZAR Anesthesiologist: FELIX CRAFT MD Pre-procedure diagnosis IUP 39weeks with X2 previous section voluntary tubal sterilization Anesthesia Type: spinal Procedure Description Under satisfactory spinal [] anesthesia, the patient was prepped and draped and placed in a supine position, tilted to the left. Pfannenstiel incision was madealong the previous incisional scar scar tissue was removed an incision was carried through the subcutaneous tissue. Bleeders brought under control with electrocautery. Fascia incised to the length of the incision. Rectus muscles from the fascia, divided midline. Peritoneum exposed, and difficult to enter due to multiple adhesion from th mid aspect or uterine surface to the upper abdominal wall which was as we entering the abdominal cavity.. lower portion of uterus exposed and noticed there was defect from lysis on the mid anterior of uterus . Transverse incision was made in the lower segment of the uterus. Amniotic sac ruptured. [clear ] amniotic fluid noted.normal macrosomic female infant was born from [place] , [] Nasal oropharyngeal suction was performed. The baby was handed to the team for immediate attention.after delayed cord clamping done. cord blood was taken . The placenta was delivered manually intact. Uterine cavity was cleaned with wet sponge and drainage established. Uterus closed in 2 layers using #1 and 0 ch cat gut[] in continuous fashion, uterine defect from adhesion was released was bleeding and deep and this was closed with continous interlocking sutue using 0ch gut.and left fimbria was clamped cut and doubly ligated with 0 plain gut and rt follopian tube was clamped at fimbriae adn cut and doubly ligated with 0plain cat gut. and left ovary was enlarged approximately 8cm in diameter and contained cystic structure suspicious of dermoid cyst, at this point ,verbal permission for removl of cyst from patient, proceeded in usual fashion. shallow incision was made over the cystic lesion and cortex was from cyst and cyst was enucleated and defect was closed using 00 ch gut with gi needle , again rt ovary also enlarged which might have contained dermoid since nature of cyst has high bilaterality. incision was made over the cystic lesion removed cyst in usual fashion, leaked fatty content with hair, defect was closed with 00ch gut in 2 layer .. Peritoneal cavity irrigated with warm saline. Sponge, needle and instrument count reported to be correct.Incisiona site on uterus recked and tubal and ovarian site were rechecked for bleeder which was intact Abdominal peritoneum closed with [00ch gut ] continuously. Rectus muscle approximated with 00ch gut]. Fascia closed with [#1vicryl subcutaneous layer was irrigated iwth water and approximately with00 )plain gut ], and skin closed with insorb,. Estimated blood loss 600] mL. Urine bag contained 450]mL of urine pressure dressing applied and sent to [facility] in stable condition Post-Procedure Post-procedure diagnosis same as above pelvic adhesion bilateral dermoid cyst of ovaries delivered normal macrosomic female infant Findings: Live Baby [female ], Apgars 9[] and [9 weight [9lb7oz, position oa[], [] presentation vx[]cord.none Estimated blood loss: other (600cc) Specimen(s): yes (see below) Specimen(s) description portion of bilateral follopian tubes cyst from both ovaries Grafts/Implants: no Grafts/Implants description none Pt Condition post procedure: stable Disposition: PACU Physician Certification I, the undersigned physician, hereby certify that I have discussed the procedure described in this consent form with this patient (or the patient's legal parts sales representative), including: * The risk and benefits of the procedure; * Any adverse reactions that may reasonably be expected to occur; * Any alternative efficacious methods of treatment which may be medically viable ; * The potential problems that may occur during recuperation; * Potential for blood transfusion and associated risks/benefits; and * Any research or economic interest I may have regarding this treatment. I further certify that the patient/legally responsible person was encouraged to ask question and that all questions were answered. ISMAEL MOBLEY MD Aug 13, 2017 15:54
--- NOTE | 2017-08-13 16:13 | PN ---
Date/Time of Note Date/Time of Note DATE: 08/13/17 TIME: 16:02 OB Subjective Subjective Subjective patient experienced sudden onset of SOB enough to scream out led to call rapid response team hospitalist ( myriam osborn) ordered CT angiogram to r/o PE which revealed large embolism in bilateral lobe which was informed by dr Osborn prior to this incidence O2 sat was 98-100 in room air HR 109 EKG neg with sinus tachycardia patient immediately transferred to ICU and pulmonalogist consultation requested also due to low H&H x2 unit RBC and X1 FFP ordered on transfer ISMAEL MOBLEY MD Aug 13, 2017 16:13
--- NOTE | 2017-08-13 16:24 | RADRPT ---
PROCEDURE: Ultrasound of the bilateral lower extremity venous system. CLINICAL INDICATION: Bilateral leg pain and swelling, deep venous thrombosis TECHNIQUE: Kim scale with and without compression, color doppler, spectral doppler of the venous system of the bilateral lower extremities was performed. Venous augmentation maneuvers were utilized . COMPARISON: No prior studies are available for comparison. FINDINGS: Right: Common femoral vein: Patent. Femoral vein: Patent. Popliteal vein: Patent. Calf veins: Patent. No soft tissue abnormalities are identified. Left: Common femoral vein: Patent. Femoral vein: Patent. Popliteal vein: Patent. Calf veins: Patent. No soft tissue abnormalities are identified. IMPRESSION: No evidence of a deep vein thrombosis within the bilateral lower extremities. RPTAT: AADD .Vickey Alegre MD, MD Date Time Electronically viewed and signed by .Vickey Alegre MD, on 08/13/2017 16:23 .B/
[2017-08-13] MEDS ORDERED: morphine 10 MG INJ IM PRN (17:00)
[2017-08-13] MEDS: HEPARIN 25000 UNITS/250 ML 250 ML IV SCH (17:34)
[2017-08-13] MEDS: morphine 2 MG INJ IV PRN (20:19)
[2017-08-13] MEDS: FERROUS GLUCONATE (EC) 325 MG TAB PO SCH (20:19)
[2017-08-13 21:54] LABS: BASOPHILS % 0.1 % (0.0-2.0); EOSINOPHILS % 0.2 % (0.0-7.0); HEMATOCRIT 24.2 % (37.0-47.0); HEMOGLOBIN 8.4 g/dl (12.0-16.0); LYMPHOCYTES # 1.4 10^3/ul (0.8-2.9); MEAN CORPUSCULAR HEMOGLOBIN 32.4 pg (29.0-33.0); MEAN CORPUSCULAR HGB CONC 34.7 g/dl (32.0-37.0); MEAN CORPUSCULAR VOLUME 93.4 fl (82.0-101.0); MEAN PLATELET VOLUME 11.7 fl (7.4-10.4); MONOCYTE # 1.2 10^3/ul (0.3-0.9); MONOCYTES % 8.3 % (0.0-11.0); NEUTROPHIL # 11.2 10^3/ul (1.6-7.5); NEUTROPHILS % 80.1 % (39.0-77.0); NUCLEATED RED BLOOD CELLS% 0.1 /100WBC (0.0-0.0); PLATELET COUNT 140 10^3/UL (140-415); RED BLOOD COUNT 2.59 10^6/ul (4.20-5.40); RED CELL DISTRIBUTION WIDTH 14.4 % (11.5-14.5)
[2017-08-13] MEDS ORDERED: AL HYDROX/MG HYDROX/SIMETH 30 ML CUP PO PRN (23:00)
[2017-08-14] VITALS (21 sets, daily range): BP systolic 102–124; BP diastolic 44–76; PULSE 86–115; RESP 16–27
[2017-08-14] MEDS: morphine 2 MG INJ IV PRN (00:27)
[2017-08-14 04:55] LABS: BASOPHILS % 0.1 % (0.0-2.0); EOSINOPHILS % 0.3 % (0.0-7.0); HEMATOCRIT 22.2 % (37.0-47.0); HEMOGLOBIN 7.3 g/dl (12.0-16.0); LYMPHOCYTES # 1.3 10^3/ul (0.8-2.9); LYMPHOCYTES % 10.4 % (15.0-51.0); MEAN CORPUSCULAR HEMOGLOBIN 31.2 pg (29.0-33.0); MEAN CORPUSCULAR HGB CONC 32.9 g/dl (32.0-37.0); MEAN CORPUSCULAR VOLUME 94.9 fl (82.0-101.0); MEAN PLATELET VOLUME 12.3 fl (7.4-10.4); MONOCYTE # 1.2 10^3/ul (0.3-0.9); NEUTROPHIL # 10.2 10^3/ul (1.6-7.5); NEUTROPHILS % 78.7 % (39.0-77.0); PLATELET COUNT 123 10^3/UL (140-415); RED BLOOD COUNT 2.34 10^6/ul (4.20-5.40); RED CELL DISTRIBUTION WIDTH 15.3 % (11.5-14.5); WHITE BLOOD COUNT 12.9 10^3/ul (4.8-10.8)
[2017-08-14 05:13] LABS: ALBUMIN 2.4 g/dl (3.3-4.9); ALBUMIN/GLOBULIN RATIO 0.85; BILIRUBIN,INDIRECT 0.6 mg/dl (0-1.1); BILIRUBIN,TOTAL 0.6 mg/dl (0.2-1.3); CREATININE 0.58 mg/dl (0.44-1.00); POTASSIUM 3.7 mmol/L (3.5-5.1); TOTAL PROTEIN 5.2 g/dl (6.1-8.1)
[2017-08-14] MEDS: PANTOPRAZOLE (EC) 40 MG TAB PO SCH (05:54)
[2017-08-14] MEDS ORDERED: SOD CHLORIDE 0.9% 500 ML IV ONE (06:00)
[2017-08-14] MEDS: HEPARIN 25000 UNITS/250 ML 250 ML IV SCH (06:18)
[2017-08-14] MEDS: FERROUS GLUCONATE (EC) 325 MG TAB PO SCH ×2 (07:49→23:04)
--- NOTE | 2017-08-14 11:15 | CONS ---
Date/Time of Note Date/Time of Note DATE: 08/14/17 TIME: 11:13 Assessment/Plan Assessment/Plan Additional Assessment/Plan Assessment and recommendations; next 1. Patient admitted for elective then developed pulmonary embolism involving the right lung. Clinically markedly improved. 2. Anemia and thrombocytopenia. Status post blood transfusion. Continue current treatment. Monitor platelet count. Patient will need anticoagulation for at least 6 months. She also is a good candidate for either apixaban or Xarelto administration. Consultation Date/Type/Reason Admit Date/Time Aug 12, 2017 at 05:35 Initial Consult Date 08/13/17 Type of Consultation: Pulmonary/critical care 24 HR Interval Summary Free Text/Dictation Patient's condition is significantly improved. She reports marked reduction in shortness of breath. Denies any chest pain, cough, hemoptysis. General exam; young woman, awake and alert. Currently in no distress. Exam/Review of Systems Vital Signs Vitals Vital Signs Date Time Temp Pulse Resp B/P Pulse Ox O2 Delivery O2 Flow Rate FiO2 08/14/17 08:00 98.1 96 20 113/54 97 Room Air 08/13/17 13:15 2.0 Intake and Output 08/13/17 08/13/17 08/14/17 15:00 23:00 07:00 Intake Total 1230 ml 895 ml 574.0 ml Output Total 330 ml 2500 ml 400 ml Balance 900 ml -1605 ml 174.0 ml Exam HEENT exam; supple neck, no JVD. No lymphadenopathy. Midline trachea. Thyromegaly. Dentition is good. Pharynx is clear. Chest exam; clear to auscultation. S1-S2 audible, no murmurs. No gallop. Regular rhythm. Abdomen exam; soft, mildly tender. Protuberant. Bowel sounds audible. Extremity exam; no edema. [employer] exam; no focal deficit. Results Result Diagram: 08/14/17 0340 08/14/17 0340 Results 24 hrs Laboratory Tests Test 08/13/17 12:04 08/13/17 14:04 08/13/17 21:46 08/14/17 00:26 White Blood Count 13.5 H 14.0 H 14.0 H Red Blood Count 2.06 L 2.10 L 2.59 #L Hemoglobin 6.5 *L 6.9 *L 8.4 #L Hematocrit 20.2 L 20.2 L 24.2 L Mean Corpuscular Volume 98.1 96.2 93.4 Mean Corpuscular Hemoglobin 31.6 32.9 32.4 Mean Corpuscular Hemoglobin Concent 32.2 34.2 34.7 Red Cell Distribution Width 14.8 H 14.6 H 14.4 Platelet Count 122 L 138 L 140 Mean Platelet Volume 12.5 H 11.6 H 11.7 H Neutrophils % 79.3 H 82.8 H 80.1 H Lymphocytes % 10.3 L 7.3 L 10.0 L Monocytes % 8.7 8.1 8.3 Eosinophils % 0.1 0.1 0.2 Basophils % 0.0 0.1 0.1 Nucleated Red Blood Cells % 0.0 0.0 0.1 H Neutrophils # 10.7 H 11.6 H 11.2 H Lymphocytes # 1.4 1.0 1.4 Monocytes # 1.2 H 1.1 H 1.2 H Eosinophils # 0.0 0.0 0.0 Basophils # 0.0 0.0 0.0 Nucleated Red Blood Cells # 0.0 0.0 0.0 Prothrombin Time 14.1 Prothrombin Time Ratio 1.1 INR International Normalized Ratio 1.09 Activated Partial Thromboplast Time 32.6 > 180.0 *H 57.2 H Test 08/14/17 03:40 08/14/17 05:33 08/14/17 07:30 White Blood Count 12.9 H Red Blood Count 2.34 L Hemoglobin 7.3 L Hematocrit 22.2 L Mean Corpuscular Volume 94.9 Mean Corpuscular Hemoglobin 31.2 Mean Corpuscular Hemoglobin Concent 32.9 Red Cell Distribution Width 15.3 H Platelet Count 123 L Mean Platelet Volume 12.3 H Neutrophils % 78.7 H Lymphocytes % 10.4 L Monocytes % 9.0 Eosinophils % 0.3 Basophils % 0.1 Nucleated Red Blood Cells % 0.0 Neutrophils # 10.2 H Lymphocytes # 1.3 Monocytes # 1.2 H Eosinophils # 0.0 Basophils # 0.0 Nucleated Red Blood Cells # 0.0 Sodium Level 134 L Potassium Level 3.7 Chloride Level 106 Carbon Dioxide Level 27 Anion Gap 5 L Blood Urea Nitrogen 10 Creatinine 0.58 Glucose Level 98 Calcium Level 8.0 L Total Bilirubin 0.6 Direct Bilirubin 0.00 Indirect Bilirubin 0.6 Aspartate Amino Transf (AST/SGOT) 48 H Alanine Aminotransferase (ALT/SGPT) 43 Alkaline Phosphatase 78 Total Protein 5.2 L Albumin 2.4 L Globulin 2.80 Albumin/Globulin Ratio 0.85 Lab Scanned Report BLOOD TRANSFUSION Activated Partial Thromboplast Time 80.7 *H Medications Medications Current Medications Influenza Virus Vaccine (Fluzone) 0.5 ml ONCE ONCE IM* ; Start 08/15/17 at 09:00 ; Stop 08/15/17 at 09:01 Oxycodone/ Acetaminophen (Percocet (5/ 325)) 1 tab Q4H PRN PO PAIN LEVEL 4-6 Last administered on 08/14/17 05:54; Admin Dose 1 TAB; Start 08/13/17 at 13:00 Oxycodone/ Acetaminophen (Percocet (5/ 325)) 2 tab Q4H PRN PO PAIN LEVEL 7-10; Start 08/13/17 at 13:00 Ondansetron HCl (Zofran Inj) 4 mg Q6H PRN IV NAUSEA AND/OR VOMITING; Start at 13:00 Ferrous Gluconate (Fergon) 325 mg BID PO Last administered on 08/14/17 07:49; Admin Dose 325 MG; Start 08/13/17 at 21:00 Morphine Sulfate (morphine) 2 mg Q4H PRN IV PAIN Last administered on 00:27; Admin Dose 2 MG; Start 08/13/17 at 17:00 Pantoprazole (Protonix Tab) 40 mg DAILY@06 PO Last administered on 08/14/17 05 :54; Admin Dose 40 MG; Start 08/14/17 at 06:00 Al Hydrox/Mg Hydrox/Simethicone (Mag-Al Plus) 30 ml Q6H PRN PO GASTROINTESTINAL UPSET Last administered on 08/13/17 22:42; Admin Dose 30 ML; Start 08/13/17 at 23:00 OLEGARIO MANCERA Aug 14, 2017 11:15
--- NOTE | 2017-08-14 12:05 | RADRPT ---
Echocardiogram Report ADDENDUM Patient Name: YEIMY PATINO Gender: Female Date: 1985 Study Date: 14-Aug-2017 Car Wiper: Alberto [facility] Location: 113 Ref. Physician: OLEGARIO MANCERA Quality: Adequate Procedures: Transthoracic echocardiogram with complete 2D, M-Mode, and doppler examination. Indications: Pulmonary embolism. 2D/M Mode Doppler Measurement Value Normal Ranges Measurement Value Normal Ranges LVIDd 2D 4.7 3.5 - 5.6 cm AV Peak Fidel 1.7 m/sec LVIDs 2D 2.9 2.1 - 4.1 cm AV Peak PG 11.0 mmHg FS 2D 37.3 % LVOT Peak Fidel 1.2 m/sec LVPWd 2D 1.0 0.6 - 1.1 cm LVOT Peak PG 6.0 mmHg IVSd 2D 1.0 0.6 - 1.1 cm MV E Peak Fidel 0.8 m/sec IVS/LVPW 2D 1.0 MV Decel Time 144 msec AoR Diam 2D 2.4 2.0 - 3.7 cm LA/Ao 2D 2 0 - 1 EDV 2D 102.0 cm3 ESV 2D 25.2 cm3 LA Dimen 2D 3.8 2.3 - 4.0 cm Findings Left Ventricle: Normal left ventricular systolic function. Normal left ventricular cavity size. Normal left ventricular wall thickness. Ejection fraction is visually estimated at 65 %. Right Ventricle: Normal right ventricular size. Normal right ventricular systolic function. Left Atrium: The left atrium is normal in size. Right Atrium: The right atrium is normal in size. Mitral Valve: Mild mitral leaflet calcification. Trace mitral regurgitation. Aortic Valve: Normal appearance of the aortic valve. No significant aortic stenosis or insufficiency. Tricuspid Valve: Normal appearance of the tricuspid valve. Unable to obtain RVSP due to minimal presence of tricuspid regurgitation. There is trace tricuspid regurgitation. Pulmonic Valve: Normal pulmonic valve appearance. There is mild pulmonic regurgitation. Pericardium: Normal pericardium with no significant pericardial effusion. Aorta: Normal aortic root. IVC: Normal size and normal respiratory collapse consistent with normal right atrial pressure. Conclusions 1.Normal left ventricular systolic function. Normal left ventricular cavity size. Normal left ventricular wall thickness. Ejection fraction is visually estimated at 65 %. Electronically Signed By: Alonso Martínez 14-Aug-2017 12:06:26 -0700 [ADDENDUM] Patient Name: YEIMY PATINO Study Date: 14-Aug-2017 [id number]
--- NOTE | 2017-08-14 15:04 | PN ---
Date/Time of Note Date/Time of Note DATE: 08/14/17 TIME: 14:59 Assessment/Plan VTE Prophylaxis VTE Prophylaxis Intervention: heparin Lines/Catheters IV Catheter Type (from Nrs): Peripheral IV Urinary Cath still in place: Yes Reason Cath still needed: other (indicate) Assessment/Plan Chief Complaint/Hosp Course 32 yo female with acute PE and acute blood loss anemia following C section PE: - Ok to come off of heparin gtt given no bleeding. Choice of agent is limited by her decision on whether or not to breast feed. Per my review, there is no data to guide safety of DOAC in and warfarin is recommended. Will need to discuss further with patient and OB Acute blood loss anemia: - Stable, s/p transfusions Transfer out of ICU to floor Problems: Subjective 24 Hr Interval Summary Free Text/Dictation Transfused PRBCs, continued on heparin drip No blood loss Doing very well, stable SOB much improved She is hesitant on whether she will breast feed or not Exam/Review of Systems Vital Signs Vitals Vital Signs Date Time Temp Pulse Resp B/P Pulse Ox O2 Delivery O2 Flow Rate FiO2 08/14/17 13:00 91 20 106/70 99 Room Air 08/14/17 12:00 98.7 08/13/17 13:15 2.0 Intake and Output 08/13/17 08/13/17 08/14/17 15:00 23:00 07:00 Intake Total 1230 ml 895 ml 574.0 ml Output Total 330 ml 2500 ml 400 ml Balance 900 ml -1605 ml 174.0 ml Exam Well appeairng NAD RRR lungs clear Abd with surgical wound Palpable uterus Ext wihtout edema Results Result Diagram: 08/14/17 0340 08/14/17 0340 Results 24 hrs Laboratory Tests Test 08/13/17 21:46 08/14/17 00:26 08/14/17 03:40 08/14/17 05:33 White Blood Count 14.0 H 12.9 H Red Blood Count 2.59 #L 2.34 L Hemoglobin 8.4 #L 7.3 L Hematocrit 24.2 L 22.2 L Mean Corpuscular Volume 93.4 94.9 Mean Corpuscular Hemoglobin 32.4 31.2 Mean Corpuscular Hemoglobin Concent 34.7 32.9 Red Cell Distribution Width 14.4 15.3 H Platelet Count 140 123 L Mean Platelet Volume 11.7 H 12.3 H Neutrophils % 80.1 H 78.7 H Lymphocytes % 10.0 L 10.4 L Monocytes % 8.3 9.0 Eosinophils % 0.2 0.3 Basophils % 0.1 0.1 Nucleated Red Blood Cells % 0.1 H 0.0 Neutrophils # 11.2 H 10.2 H Lymphocytes # 1.4 1.3 Monocytes # 1.2 H 1.2 H Eosinophils # 0.0 0.0 Basophils # 0.0 0.0 Nucleated Red Blood Cells # 0.0 0.0 Activated Partial Thromboplast Time > 180.0 *H 57.2 H Sodium Level 134 L Potassium Level 3.7 Chloride Level 106 Carbon Dioxide Level 27 Anion Gap 5 L Blood Urea Nitrogen 10 Creatinine 0.58 Glucose Level 98 Calcium Level 8.0 L Total Bilirubin 0.6 Direct Bilirubin 0.00 Indirect Bilirubin 0.6 Aspartate Amino Transf (AST/SGOT) 48 H Alanine Aminotransferase (ALT/SGPT) 43 Alkaline Phosphatase 78 Total Protein 5.2 L Albumin 2.4 L Globulin 2.80 Albumin/Globulin Ratio 0.85 Lab Scanned Report BLOOD TRANSFUSION Test 08/14/17 07:30 Activated Partial Thromboplast Time 80.7 *H Medications Medications Current Medications Influenza Virus Vaccine (Fluzone) 0.5 ml ONCE ONCE IM* ; Start 08/15/17 at 09:00 ; Stop 08/15/17 at 09:01 Oxycodone/ Acetaminophen (Percocet (5/ 325)) 1 tab Q4H PRN PO PAIN LEVEL 4-6 Last administered on 08/14/17 05:54; Admin Dose 1 TAB; Start 08/13/17 at 13:00 Oxycodone/ Acetaminophen (Percocet (5/ 325)) 2 tab Q4H PRN PO PAIN LEVEL 7-10; Start 08/13/17 at 13:00 Ondansetron HCl (Zofran Inj) 4 mg Q6H PRN IV NAUSEA AND/OR VOMITING; Start at 13:00 Ferrous Gluconate (Fergon) 325 mg BID PO Last administered on 08/14/17 07:49; Admin Dose 325 MG; Start 08/13/17 at 21:00 Morphine Sulfate (morphine) 2 mg Q4H PRN IV PAIN Last administered on 00:27; Admin Dose 2 MG; Start 08/13/17 at 17:00 Pantoprazole (Protonix Tab) 40 mg DAILY@06 PO Last administered on 08/14/17 05 :54; Admin Dose 40 MG; Start 08/14/17 at 06:00 Al Hydrox/Mg Hydrox/Simethicone (Mag-Al Plus) 30 ml Q6H PRN PO GASTROINTESTINAL UPSET Last administered on 08/13/17 22:42; Admin Dose 30 ML; Start 08/13/17 at 23:00 Enoxaparin Sodium (Lovenox) 110 mg Q12 SC ; Start 08/14/17 at 21:00 JUDI WINTERS MD Aug 14, 2017 15:04
[2017-08-14 15:23] LABS: BASOPHILS % 0.1 % (0.0-2.0); EOSINOPHILS # 0.2 10^3/ul (0.0-0.5); EOSINOPHILS % 1.3 % (0.0-7.0); HEMATOCRIT 26.8 % (37.0-47.0); HEMOGLOBIN 9.2 g/dl (12.0-16.0); LYMPHOCYTES # 1.6 10^3/ul (0.8-2.9); LYMPHOCYTES % 11.5 % (15.0-51.0); MEAN CORPUSCULAR HEMOGLOBIN 31.4 pg (29.0-33.0); MEAN CORPUSCULAR HGB CONC 34.3 g/dl (32.0-37.0); MEAN CORPUSCULAR VOLUME 91.5 fl (82.0-101.0); MONOCYTE # 1.1 10^3/ul (0.3-0.9); MONOCYTES % 8.3 % (0.0-11.0); NEUTROPHIL # 10.5 10^3/ul (1.6-7.5); NEUTROPHILS % 76.8 % (39.0-77.0); NUCLEATED RED BLOOD CELLS% 0.2 /100WBC (0.0-0.0); PLATELET COUNT 154 10^3/UL (140-415); RED BLOOD COUNT 2.93 10^6/ul (4.20-5.40); RED CELL DISTRIBUTION WIDTH 16.3 % (11.5-14.5); WHITE BLOOD COUNT 13.7 10^3/ul (4.8-10.8)
[2017-08-14] MEDS: RIVAROXABAN 15 MG TABLET PO SCH (18:31)
[2017-08-14] MEDS ORDERED: ENOXAPARIN 100 MG/ML SYG SC SCH (21:00)
[2017-08-14] MEDS: LACTATED RINGER'S 1,000 ML IV SCH (21:02)
[2017-08-14] MEDS ORDERED: MISOPROSTOL 200 MCG TAB PR PRN (21:30)
[2017-08-14] MEDS ORDERED: CARBOPROST 250 MCG INJ IM PRN (21:30)
[2017-08-14] MEDS ORDERED: OXYTOCIN 30 UNITS/LR 500 ML IV PRN (21:30)
[2017-08-14] MEDS ORDERED: LANOLIN 7 GM TUBE TOP PRN (21:30)
[2017-08-14] MEDS ORDERED: METHYLERGONOVINE 0.2 MG INJ IM PRN (21:30)
[2017-08-14] MEDS: SENNA/DOCUSATE NA (8.6MG/50MG) TAB PO PRN (22:49)
[2017-08-14] MEDS: OXYCODONE/ACETAMINOPHEN (5/325) TAB PO PRN (22:50)
[2017-08-15] VITALS: BP 118/71; PULSE 82; RESP 20
[2017-08-15 04:00] VITALS: BP 113/64; PULSE 78; RESP 18
[2017-08-15] MEDS: OXYCODONE/ACETAMINOPHEN (5/325) TAB PO PRN ×3 (04:29→14:21)
[2017-08-15] MEDS: LACTATED RINGER'S 1,000 ML IV SCH ×2 (05:02→21:02)
[2017-08-15] MEDS: PANTOPRAZOLE (EC) 40 MG TAB PO SCH (06:06)
[2017-08-15 07:47] VITALS: BP 118/81; PULSE 80; RESP 18
[2017-08-15] MEDS: RIVAROXABAN 15 MG TABLET PO SCH ×2 (08:36→17:53)
[2017-08-15] MEDS: FERROUS GLUCONATE (EC) 325 MG TAB PO SCH ×2 (08:36→21:05)
--- NOTE | 2017-08-15 08:38 | RADRPT ---
Vent Rate: 118 bpm RR Interval: 0 msec MN Interval: 164 msec QRS Duration: 68 msec QT Interval: 310 msec QTC Interval: 434 msec P-R-T [place]: 64 - 47 - 65 degrees Sinus tachycardia Otherwise normal ECG Electronically Signed By: Frandy Stevenson [id number]
[2017-08-15] MEDS ORDERED: INFLUENZA VIRUS VACCINE 0.5 ML SYG IM* ONE (09:00)
[2017-08-15] MEDS ORDERED: DIPHTH/TET/ACEL PERTUSS (ADULT) 0.5 ML VIAL IM* ONE (09:00)
[2017-08-15 14:30] VITALS: BP 118/72; PULSE 78; RESP 18
--- NOTE | 2017-08-15 14:32 | CONS ---
Date/Time of Note Date/Time of Note DATE: 08/15/17 TIME: 14:30 Consult Date/Type/Reason Admit Date/Time Aug 12, 2017 at 05:35 Initial Consult Date 08/13/17 Type of Consultation: Pulmonary/critical care Subjective Patient stable this morning no significant changes. Denies shortness of breath or chest pain. Objective Vital Signs Date Time Temp Pulse Resp B/P Pulse Ox O2 Delivery O2 Flow Rate FiO2 08/15/17 07:47 97.8 80 18 118/81 Room Air 08/14/17 18:00 98 08/13/17 13:15 2.0 Intake and Output 08/14/17 08/14/17 08/15/17 15:00 23:00 07:00 Intake Total 832.0 ml 1113.0 ml 450 ml Output Total 250 ml 2625 ml 500 ml Balance 582.0 ml -1512.0 ml -50 ml Exam GENERAL: Well-nourished well-developed lady comfortable at rest VITAL SIGNS: per chart NECK: Supple. No JVD or lymphadenopathy. CARDIAC EXAM: S1, S2. No added sounds or murmurs. CHEST: clear bilaterally, No added sounds, rales or wheezes ABDOMEN: Soft, nontender. No guarding or rebound. EXTREMITIES: No cyanosis, clubbing or edema. NEUROLOGIC: Generalized weakness. No focal deficits. Results/Medications Result Diagram: 08/14/17 1509 08/14/17 0340 Results 24 hrs Laboratory Tests Test 08/14/17 15:09 08/15/17 07:52 White Blood Count 13.7 H Red Blood Count 2.93 #L Hemoglobin 9.2 #L Hematocrit 26.8 #L Mean Corpuscular Volume 91.5 Mean Corpuscular Hemoglobin 31.4 Mean Corpuscular Hemoglobin Concent 34.3 Red Cell Distribution Width 16.3 H Platelet Count 154 # Mean Platelet Volume 11.0 H Neutrophils % 76.8 Lymphocytes % 11.5 L Monocytes % 8.3 Eosinophils % 1.3 Basophils % 0.1 Nucleated Red Blood Cells % 0.2 H Neutrophils # 10.5 H Lymphocytes # 1.6 Monocytes # 1.1 H Eosinophils # 0.2 Basophils # 0.0 Nucleated Red Blood Cells # 0.0 Activated Partial Thromboplast Time 85.8 *H 37.7 H Medications Current Medications Ondansetron HCl (Zofran Inj) 4 mg Q6H PRN IV NAUSEA AND/OR VOMITING; Start at 13:00 Ferrous Gluconate (Fergon) 325 mg BID PO Last administered on 08/15/17 08:36; Admin Dose 325 MG; Start 08/13/17 at 21:00 Pantoprazole (Protonix Tab) 40 mg DAILY@06 PO Last administered on 08/15/17 06 :06; Admin Dose 40 MG; Start 08/14/17 at 06:00 Al Hydrox/Mg Hydrox/ Simethicone 30 ml 30 ml Q6H PRN PO GASTROINTESTINAL UPSET Last administered on 08/13/17 22:42; Admin Dose 30 ML; Start 08/13/17 at 23:00 Lactated Ringer's (Lr) 1,000 ml @ 125 mls/hr Q8H IV ; Start 08/14/17 at 21:02 Oxycodone/ Acetaminophen (Percocet (5/ 325)) 1 tab Q4H PRN PO PAIN LEVEL 4-6 Last administered on 08/15/17 08:43; Admin Dose 1 TAB; Start 08/14/17 at 21:30 Oxycodone/ Acetaminophen (Percocet (5/ 325)) 2 tab Q4H PRN PO PAIN LEVEL 7-10 Last administered on 08/14/17 22:50; Admin Dose 2 TAB; Start 08/14/17 at 21:30 Simethicone (Mylicon) 160 mg Q8H PRN PO DISTENSION/GAS/BLOATING Last administered on 08/15/17 12:11; Admin Dose 160 MG; Start 08/14/17 at 21:30 Senna/Docusate Sodium (Senokot-S) 1 tab BID PRN PO CONSTIPATION Last administered on 08/14/17 22:49; Admin Dose 1 TAB; Start 08/14/17 at 21:30 Diphtheria/ Tetanus/Acell Pertussis 0.5 ml 0.5 ml ONCE ONCE IM* ; Start at 09:00; Stop 08/17/17 at 09:01 Oxytocin/Lactated Ringer's 500 ml @ 0 mls/hr ONCE PRN IV For Hemorrhage Management; Start 08/14/17 at 21:30 Methylergonovine Maleate (Methergine) 0.2 mg ONCE PRN IM VAGINAL BLEEDING; Start 08/14/17 at 21:30 Carboprost Tromethamine (Hemabate) 250 mcg ONCE PRN IM VAGINAL BLEEDING; Start 08/14/17 at 21:30 Misoprostol (Cytotec) 1,000 mcg ONCE PRN [place] VAGINAL BLEEDING; Start 08/14/17 at 21:30 Assessment/Plan Chief Complaint/Hosp Course Assessment 1. Acute pulmonary embolus with no evidence of right heart failure or hypoxemia 2. Plan 1. Continue Xarelto, 3-6 months. Hypercoagulable workup. 2. Discussed with OB team no breast-feeding. 3. Anticipate discharge tomorrow. Problems: ASHWIN CACERES MD, [facility] Aug 15, 2017 14:32
--- NOTE | 2017-08-15 14:45 | PN ---
Date/Time of Note Date/Time of Note DATE: 08/15/17 TIME: 14:34 OB Subjective Subjective Subjective passing flatus no b.m no dyspnea OB Objective Objective Objective VSS afebrile abdomen distended tympanic wound dry lochia min ext edematous doppler u/s neg OB Assessment/Plan Other Assessment: #3 post c/s patrick ovarian cystectomy BTL on anticoagulant(Xarelto) for massive pulmonary embolism Other plan: observe one more day discharge in am ISMAEL MOBLEY MD Aug 15, 2017 14:44
[2017-08-15 16:59] VITALS: BP 118/72; PULSE 68; RESP 18
--- NOTE | 2017-08-15 17:06 | PN ---
Date/Time of Note Date/Time of Note DATE: 08/15/17 TIME: 16:50 Assessment/Plan VTE Prophylaxis VTE Prophylaxis Intervention: other Lines/Catheters IV Catheter Type (from Nrs): Saline Lock Assessment/Plan Chief Complaint/Hosp Course 1. Acute respiratory distress secondary to PE-now stable Continue Eliquis, recommend to DC home tomorrow with Xarelto for 3 month, patient is not planning on breast-feeding 2. Acute blood loss anemia-stable S/p transfusions Discharge planning: DC home tomorrow with Xarelto Problems: Subjective 24 Hr Interval Summary Constitutional: no complaints Exam/Review of Systems Vital Signs Vitals Vital Signs Date Time Temp Pulse Resp B/P Pulse Ox O2 Delivery O2 Flow Rate FiO2 08/15/17 14:30 97.7 78 18 118/72 95 Room Air 08/13/17 13:15 2.0 Intake and Output 08/14/17 08/14/17 08/15/17 15:00 23:00 07:00 Intake Total 832.0 ml 1113.0 ml 450 ml Output Total 250 ml 2625 ml 500 ml Balance 582.0 ml -1512.0 ml -50 ml Exam Constitutional: alert, oriented Respiratory: clear to auscultation Cardiovascular: regular rate and rhythm Gastrointestinal: soft, No distended Musculoskeletal: nl extremities to inspection Results Result Diagram: 08/14/17 1509 08/14/17 0340 Results 24 hrs Laboratory Tests Test 08/15/17 07:52 Activated Partial Thromboplast Time 37.7 H Medications Medications Current Medications Ondansetron HCl (Zofran Inj) 4 mg Q6H PRN IV NAUSEA AND/OR VOMITING; Start at 13:00 Ferrous Gluconate (Fergon) 325 mg BID PO Last administered on 08/15/17 08:36; Admin Dose 325 MG; Start 08/13/17 at 21:00 Pantoprazole (Protonix Tab) 40 mg DAILY@06 PO Last administered on 08/15/17 06 :06; Admin Dose 40 MG; Start 08/14/17 at 06:00 Al Hydrox/Mg Hydrox/ Simethicone 30 ml 30 ml Q6H PRN PO GASTROINTESTINAL UPSET Last administered on 08/13/17 22:42; Admin Dose 30 ML; Start 08/13/17 at 23:00 Lactated Ringer's (Lr) 1,000 ml @ 125 mls/hr Q8H IV ; Start 08/14/17 at 21:02 Oxycodone/ Acetaminophen (Percocet (5/ 325)) 1 tab Q4H PRN PO PAIN LEVEL 4-6 Last administered on 08/15/17 08:43; Admin Dose 1 TAB; Start 08/14/17 at 21:30 Oxycodone/ Acetaminophen (Percocet (5/ 325)) 2 tab Q4H PRN PO PAIN LEVEL 7-10 Last administered on 08/15/17 14:21; Admin Dose 2 TAB; Start 08/14/17 at 21:30 Simethicone (Mylicon) 160 mg Q8H PRN PO DISTENSION/GAS/BLOATING Last administered on 08/15/17 12:11; Admin Dose 160 MG; Start 08/14/17 at 21:30 Senna/Docusate Sodium (Senokot-S) 1 tab BID PRN PO CONSTIPATION Last administered on 08/14/17 22:49; Admin Dose 1 TAB; Start 08/14/17 at 21:30 Diphtheria/ Tetanus/Acell Pertussis 0.5 ml 0.5 ml ONCE ONCE IM* ; Start at 09:00; Stop 08/17/17 at 09:01 Oxytocin/Lactated Ringer's 500 ml @ 0 mls/hr ONCE PRN IV For Hemorrhage Management; Start 08/14/17 at 21:30 Methylergonovine Maleate (Methergine) 0.2 mg ONCE PRN IM VAGINAL BLEEDING; Start 08/14/17 at 21:30 Carboprost Tromethamine (Hemabate) 250 mcg ONCE PRN IM VAGINAL BLEEDING; Start 08/14/17 at 21:30 Misoprostol (Cytotec) 1,000 mcg ONCE PRN [place] VAGINAL BLEEDING; Start 08/14/17 at 21:30 JARVIS MEDINA Aug 15, 2017 17:06
[2017-08-15] MEDS: SENNA/DOCUSATE NA (8.6MG/50MG) TAB PO PRN (21:05)
[2017-08-15 21:44] VITALS: BP 120/66; PULSE 72; RESP 21
[2017-08-16] VITALS: BP 117/69; PULSE 91; RESP 20
[2017-08-16] MEDS: OXYCODONE/ACETAMINOPHEN (5/325) TAB PO PRN ×4 (01:05→20:20)
[2017-08-16 04:00] VITALS: BP 103/57; PULSE 78; RESP 20
[2017-08-16] MEDS: LACTATED RINGER'S 1,000 ML IV SCH (05:02)
[2017-08-16] MEDS: PANTOPRAZOLE (EC) 40 MG TAB PO SCH (06:00)
[2017-08-16 08:00] VITALS: BP 132/77; PULSE 84; RESP 18
[2017-08-16] MEDS: RIVAROXABAN 15 MG TABLET PO SCH ×2 (08:36→17:57)
[2017-08-16] MEDS: FERROUS GLUCONATE (EC) 325 MG TAB PO SCH ×2 (08:36→20:20)
[2017-08-16 09:40] LABS: BASOPHILS % 0.2 % (0.0-2.0); EOSINOPHILS # 0.3 10^3/ul (0.0-0.5); HEMATOCRIT 29.8 % (37.0-47.0); HEMOGLOBIN 9.8 g/dl (12.0-16.0); LYMPHOCYTES # 0.9 10^3/ul (0.8-2.9); LYMPHOCYTES % 9.6 % (15.0-51.0); MEAN CORPUSCULAR HEMOGLOBIN 30.9 pg (29.0-33.0); MEAN CORPUSCULAR HGB CONC 32.9 g/dl (32.0-37.0); MEAN PLATELET VOLUME 11.2 fl (7.4-10.4); MONOCYTE # 0.9 10^3/ul (0.3-0.9); NEUTROPHIL # 7.4 10^3/ul (1.6-7.5); NEUTROPHILS % 75.9 % (39.0-77.0); NUCLEATED RED BLOOD CELLS% 0.3 /100WBC (0.0-0.0); PLATELET COUNT 215 10^3/UL (140-415); RED BLOOD COUNT 3.17 10^6/ul (4.20-5.40); WHITE BLOOD COUNT 9.7 10^3/ul (4.8-10.8)
[2017-08-16 10:08] LABS: CALCIUM 8.8 mg/dl (8.4-10.2); CREATININE 0.57 mg/dl (0.44-1.00); MAGNESIUM 1.7 mg/dl (1.7-2.5); PHOSPHORUS 4.8 mg/dl (2.5-4.9); POTASSIUM 3.8 mmol/L (3.5-5.1)
[2017-08-16] MEDS ORDERED: RIVA20TA PO (11:42)
[2017-08-16] MEDS ORDERED: RIVA15TA PO (11:42)
[2017-08-16 12:30] VITALS: BP 116/68; PULSE 93; RESP 20
[2017-08-16 15:30] VITALS: BP 121/64; PULSE 94; RESP 19
--- NOTE | 2017-08-16 15:50 | PN ---
Date/Time of Note Date/Time of Note DATE: 08/16/17 TIME: 15:48 Assessment/Plan VTE Prophylaxis VTE Prophylaxis Intervention: other Lines/Catheters IV Catheter Type (from Nrs): Saline Lock Assessment/Plan Chief Complaint/Hosp Course 1. Acute respiratory distress secondary to PE-now stable Continue Xarelto, per internal medicine patient is stable for DC to home today with Xarelto for 3 month, patient is not planning on breast-feeding 2. Acute blood loss anemia-stable S/p transfusions Problems: Subjective 24 Hr Interval Summary Constitutional: no complaints Exam/Review of Systems Vital Signs Vitals Vital Signs Date Time Temp Pulse Resp B/P Pulse Ox O2 Delivery O2 Flow Rate FiO2 08/16/17 12:30 98.0 93 20 116/68 99 08/16/17 08:00 Room Air 08/13/17 13:15 2.0 Exam Constitutional: alert, oriented Respiratory: clear to auscultation Cardiovascular: regular rate and rhythm Gastrointestinal: soft, No distended Musculoskeletal: nl extremities to inspection Results Result Diagram: 08/16/17 0920 08/16/17 0920 Results 24 hrs Laboratory Tests Test 08/16/17 06:59 08/16/17 09:20 Lab Scanned Report BLOOD TRANSFUSION White Blood Count 9.7 # Red Blood Count 3.17 L Hemoglobin 9.8 L Hematocrit 29.8 L Mean Corpuscular Volume 94.0 Mean Corpuscular Hemoglobin 30.9 Mean Corpuscular Hemoglobin Concent 32.9 Red Cell Distribution Width 16.0 H Platelet Count 215 # Mean Platelet Volume 11.2 H Neutrophils % 75.9 Lymphocytes % 9.6 L Monocytes % 9.0 Eosinophils % 3.0 Basophils % 0.2 Nucleated Red Blood Cells % 0.3 H Neutrophils # 7.4 Lymphocytes # 0.9 Monocytes # 0.9 Eosinophils # 0.3 Basophils # 0.0 Nucleated Red Blood Cells # 0.0 Sodium Level 136 Potassium Level 3.8 Chloride Level 105 Carbon Dioxide Level 27 Anion Gap 8 Blood Urea Nitrogen 11 Creatinine 0.57 Glucose Level 77 Hemoglobin A1c 5.0 Calcium Level 8.8 Phosphorus Level 4.8 Magnesium Level 1.7 Medications Medications Current Medications Ondansetron HCl (Zofran Inj) 4 mg Q6H PRN IV NAUSEA AND/OR VOMITING; Start at 13:00 Ferrous Gluconate (Fergon) 325 mg BID PO Last administered on 08/16/17 08:36; Admin Dose 325 MG; Start 08/13/17 at 21:00 Pantoprazole (Protonix Tab) 40 mg DAILY@06 PO Last administered on 08/15/17 06 :06; Admin Dose 40 MG; Start 08/14/17 at 06:00 Al Hydrox/Mg Hydrox/ Simethicone 30 ml 30 ml Q6H PRN PO GASTROINTESTINAL UPSET Last administered on 08/13/17 22:42; Admin Dose 30 ML; Start 08/13/17 at 23:00 Lactated Ringer's (Lr) 1,000 ml @ 125 mls/hr Q8H IV ; Start 08/14/17 at 21:02 Oxycodone/ Acetaminophen (Percocet (5/ 325)) 1 tab Q4H PRN PO PAIN LEVEL 4-6 Last administered on 08/16/17 10:37; Admin Dose 1 TAB; Start 08/14/17 at 21:30 Oxycodone/ Acetaminophen (Percocet (5/ 325)) 2 tab Q4H PRN PO PAIN LEVEL 7-10 Last administered on 08/16/17 01:05; Admin Dose 2 TAB; Start 08/14/17 at 21:30 Simethicone (Mylicon) 160 mg Q8H PRN PO DISTENSION/GAS/BLOATING Last administered on 08/16/17 01:05; Admin Dose 160 MG; Start 08/14/17 at 21:30 Senna/Docusate Sodium (Senokot-S) 1 tab BID PRN PO CONSTIPATION Last administered on 08/15/17 21:05; Admin Dose 1 TAB; Start 08/14/17 at 21:30 Diphtheria/ Tetanus/Acell Pertussis 0.5 ml 0.5 ml ONCE ONCE IM* ; Start at 09:00; Stop 08/17/17 at 09:01 Oxytocin/Lactated Ringer's 500 ml @ 0 mls/hr ONCE PRN IV For Hemorrhage Management; Start 08/14/17 at 21:30 Methylergonovine Maleate (Methergine) 0.2 mg ONCE PRN IM VAGINAL BLEEDING; Start 08/14/17 at 21:30 Carboprost Tromethamine (Hemabate) 250 mcg ONCE PRN IM VAGINAL BLEEDING; Start 08/14/17 at 21:30 Misoprostol (Cytotec) 1,000 mcg ONCE PRN [place] VAGINAL BLEEDING; Start 08/14/17 at 21:30 JARVIS MEDINA Aug 16, 2017 15:50
[2017-08-16 17:48] LABS: ADD UMIC YES; UR ASCORBIC ACID NEGATIVE (NEGATIVE); UR BACTERIA FEW /HPF (NONE SEEN); UR BILIRUBIN (Dip) NEGATIVE (NEGATIVE); UR BLOOD (Dip) 2+ mg/dL (NEGATIVE); UR CLARITY CLEAR (CLEAR); UR COLOR YELLOW (YELLOW); UR GLUCOSE (Dip) NEGATIVE (NEGATIVE); UR KETONES (Dip) NEGATIVE (NEGATIVE); UR LEUKOCYTE ESTERASE (Dip) 1+ Leu/ul (NEGATIVE); UR NITRITE (Dip) NEGATIVE (NEGATIVE); UR RBC 2 /HPF (0-5); UR TOTAL PROTEIN (Dip) NEGATIVE (NEGATIVE); UR UROBILINOGEN (Dip) 1+ mg/dL (NEGATIVE)
--- NOTE | 2017-08-16 19:34 | PN ---
Date/Time of Note Date/Time of Note DATE: 08/16/17 TIME: 19:30 OB Subjective Subjective Subjective c/o dysuria no other subjective sx OB Objective Objective Objective vss afebrile abdomen soft wound dry lochia min u/a neg calf neg for tenderness OB Assessment/Plan Other Assessment: s/p C/S #4 R/o UTI Other plan: as ordered ISMAEL MOBLEY MD Aug 16, 2017 19:34
[2017-08-16 20:20] VITALS: BP 131/66; PULSE 103; RESP 19
[2017-08-17 00:03] VITALS: BP 122/72; PULSE 103; RESP 18
[2017-08-17] MEDS: OXYCODONE/ACETAMINOPHEN (5/325) TAB PO PRN ×4 (00:03→14:39)
[2017-08-17 04:00] VITALS: BP 118/62; PULSE 100; RESP 19
[2017-08-17] MEDS: PANTOPRAZOLE (EC) 40 MG TAB PO SCH (05:58)
[2017-08-17] MEDS: SENNA/DOCUSATE NA (8.6MG/50MG) TAB PO PRN (05:59)
[2017-08-17] MEDS: LACTATED RINGER'S 1,000 ML IV SCH (08:13)
[2017-08-17 08:30] VITALS: BP 116/58; PULSE 112; RESP 18
[2017-08-17] MEDS: FERROUS GLUCONATE (EC) 325 MG TAB PO SCH (08:36)
[2017-08-17] MEDS: RIVAROXABAN 15 MG TABLET PO SCH (08:36)
[2017-08-17] MEDS ORDERED: DIPHTH/TET/ACEL PERTUSS (ADULT) 0.5 ML VIAL IM* ONE (09:00)
--- NOTE | 2017-08-17 11:15 | CONS ---
Date/Time of Note Date/Time of Note DATE: 08/17/17 TIME: 11:12 Consult Date/Type/Reason Admit Date/Time Aug 12, 2017 at 05:35 Initial Consult Date 08/13/17 Type of Consultation: Pulmonary/critical care Subjective Patient had low-grade fever. Currently being worked up for UTI. Denies any chest pain or shortness of breath. Continues anticoagulation. Objective Vital Signs Date Time Temp Pulse Resp B/P Pulse Ox O2 Delivery O2 Flow Rate FiO2 08/17/17 08:30 98.1 112 18 116/58 98 08/17/17 04:00 Room Air 08/13/17 13:15 2.0 Exam GENERAL: Well-nourished well-developed lady comfortable at rest VITAL SIGNS: per chart NECK: Supple. No JVD or lymphadenopathy. CARDIAC EXAM: S1, S2. No added sounds or murmurs. CHEST: clear bilaterally, No added sounds, rales or wheezes ABDOMEN: Soft, nontender. No guarding or rebound. EXTREMITIES: No cyanosis, clubbing or edema. NEUROLOGIC: Generalized weakness. No focal deficits. Results/Medications Result Diagram: 08/16/1791908/16/17919 Results 24 hrs Laboratory Tests Test 08/16/17 17:00 Urine Color YELLOW Urine Clarity CLEAR Urine pH 7.0 Urine Specific [place] 1.010 Urine Ketones NEGATIVE Urine Nitrite NEGATIVE Urine Bilirubin NEGATIVE Urine Urobilinogen 1+ H Urine Leukocyte Esterase 1+ H Urine Microscopic RBC 2 Urine Microscopic WBC 3 Urine Bacteria FEW A Urine Hemoglobin 2+ H Urine Glucose NEGATIVE Urine Total Protein NEGATIVE Medications Current Medications Ondansetron HCl (Zofran Inj) 4 mg Q6H PRN IV NAUSEA AND/OR VOMITING; Start at 13:00 Ferrous Gluconate (Fergon) 325 mg BID PO Last administered on 08/17/17 08:36; Admin Dose 325 MG; Start 08/13/17 at 21:00 Pantoprazole (Protonix Tab) 40 mg DAILY@06 PO Last administered on 08/17/17 05 :58; Admin Dose 40 MG; Start 08/14/17 at 06:00 Al Hydrox/Mg Hydrox/Simethicone (Mag-Al Plus) 30 ml Q6H PRN PO GASTROINTESTINAL UPSET Last administered on 08/13/17 22:42; Admin Dose 30 ML; Start 08/13/17 at 23:00 Oxycodone/ Acetaminophen (Percocet (5/ 325)) 1 tab Q4H PRN PO PAIN LEVEL 4-6 Last administered on 08/16/17 10:37; Admin Dose 1 TAB; Start 08/14/17 at 21:30 Oxycodone/ Acetaminophen (Percocet (5/ 325)) 2 tab Q4H PRN PO PAIN LEVEL 7-10 Last administered on 08/17/17 10:05; Admin Dose 2 TAB; Start 08/14/17 at 21:30 Simethicone (Mylicon) 160 mg Q8H PRN PO DISTENSION/GAS/BLOATING Last administered on 08/16/17 01:05; Admin Dose 160 MG; Start 08/14/17 at 21:30 Senna/Docusate Sodium 1 tab 1 tab BID PRN PO CONSTIPATION Last administered on 08/17/17 05:59; Admin Dose 1 TAB; Start 08/14/17 at 21:30 Oxytocin/Lactated Ringer's 500 ml @ 0 mls/hr ONCE PRN IV For Hemorrhage Management; Start 08/14/17 at 21:30 Methylergonovine Maleate (Methergine) 0.2 mg ONCE PRN IM VAGINAL BLEEDING; Start 08/14/17 at 21:30 Carboprost Tromethamine (Hemabate) 250 mcg ONCE PRN IM VAGINAL BLEEDING; Start 08/14/17 at 21:30 Misoprostol (Cytotec) 1,000 mcg ONCE PRN [place] VAGINAL BLEEDING; Start 08/14/17 at 21:30 Assessment/Plan Chief Complaint/Hosp Course Assessment 1. Acute pulmonary embolus with no evidence of right heart failure or hypoxemia 2. , possible UTI. Plan 1. Continue Xarelto, 3-6 months. Hypercoagulable workup as an outpatient. 2. Discussed with OB team no breast-feeding. 3. Anticipate discharge Problems: ASHWIN CACERES MD, [facility] Aug 17, 2017 11:15
[2017-08-17 12:00] VITALS: BP 116/65; PULSE 105
--- NOTE | 2017-08-17 16:24 | PD.PPDC ---
[facility] Discharge Instruction Diagnosis Final Diagnosis: s/p repeat c/s and BTL ,bilateral ovarian cyst Condition Patient Condition: Stable Diet Diet: Resume Regular Diet Activity/Restrictions Activity: May Shower Restrictions: No Exercising No Lifting Minimize Stair-climbing No Sexual Activity Nothing in the Vagina No Largo No Tampons, douche Wound/Drain Care Instructions Wound/Drain Care Instructions: Wash with soap and water Keep clean and dry Follow-up Follow-up with Physician: 2, Week/Weeks Return to clinic for [employer] Instructions: Fever greater than 101 Chills Worsening abdominal pain Excessive Vaginal Bleeding More than 2 pads per hour Unable to tolerate diet OB Instructions: Breast Tenderness Depression Blurried Vision Headache Surgical Instructions: Incisional Drainage Incisional Redness ISMAEL MOBLEY MD Aug 17, 2017 16:24
[2017-08-17 16:30] VITALS: BP 132/75; PULSE 105; RESP 18
--- NOTE | 2017-08-17 16:30 | DS ---
Date/Time of Note Date/Time of Note DATE: 08/17/17 TIME: 16:26 Obstetrical Discharge Record Final Diagnosis Final Diagnosis: Term delivered Other Final Diagnosis bilateral ovarian cyst Vaginal Delivery Obstetrical Delivery: Bilateral Tubal Ligation Section Section: Repeat Condition on Discharge Physical Assessment Last Vitals: afebrile HR 105 normotensive Voiding: Yes Bowel Movement: Yes Breast: Soft, non-tender Fundus: Firm Abdomen and Incision: soft sl dsitended wound dry Calf Tenderness: No Patient Condition: Stable ISMAEL MOBLEY MD Aug 17, 2017 16:29
[2017-08-17 16:42] VITALS: BP 132/75; PULSE 105; RESP 18
== END 2017-08-17 17:15 | disposition home or self-care (01) | DRG 765 ==
LOC: L-D 05:35 → EDUNIT# 07:30 → L-D 07:52 → PP1 12:44 → ICU 08-13 13:35 → PP1 08-14 18:39
PROVIDERS: ADMIT Obstetrics & Gynecology; ATTEND Internal Medicine
PROC: 0UB70ZZ Excision of Bilateral Fallopian Tubes, Open Approach (ICD-10-PCS; 2017-08-12)
PROC: 10D00Z1 Extraction of Products of Conception, Low, Open Approach (ICD-10-PCS; principal; 2017-08-12 07:30)
PROC: 30233N1 Transfusion of Nonautologous Red Blood Cells into Peripheral Vein, Percutaneous Approach (ICD-10-PCS; 2017-08-13)
DX: O34.211 Maternal care for low transverse scar from previous cesarean delivery (principal); I26.99 Other pulmonary embolism without acute cor pulmonale; Z68.42 Body mass index [BMI] 45.0-49.9, adult; E66.01 Morbid (severe) obesity due to excess calories; D62 Acute posthemorrhagic anemia; O86.20 Urinary tract infection following delivery, unspecified; O99.214 Obesity complicating childbirth; O34.83 Maternal care for other abnormalities of pelvic organs, third trimester; D27.0 Benign neoplasm of right ovary; D27.1 Benign neoplasm of left ovary; Z37.0 Single live birth; Z3A.39 39 weeks gestation of pregnancy; Z30.2 Encounter for sterilization; B96.20 Unspecified Escherichia coli [E. coli] as the cause of diseases classified elsewhere; B96.1 Klebsiella pneumoniae [K. pneumoniae] as the cause of diseases classified elsewhere
CPT/HCPCS: 36430; 71275; 80048; 80053; 81001; 83036; 83735; 84100; 84560; 85025; 85610; 85730; 86592; 86644; 86850; 86900; 86901; 86920; 87081; 87086; 87340; 88305; 90686; 90715; 93005; 93306; 99464; J0690; J1644; J1885; J2270; J2274; J2405; J2590; J2765; J7040; J7120; P9016; Q9967